=== PATIENT | female | born 1995 | race Caucasian/White ===

== ENCOUNTER 2018-09-26 14:04 | Emergency (ER) | payer BC ==
[2018-09-26 14:21] VITALS: BP 126/69
--- NOTE | 2018-09-26 15:38 | RAD ---
INDICATION: Pain and swelling overlying the lateral malleolus after a rolling injury the previous night COMPARISON: None. TECHNIQUE: 3 views of the right ankle were obtained. FINDINGS: There is a very mild degree of soft tissue swelling overlying the fibular malleolus. The bones are normal alignment. Joint spaces appear maintained. No fracture is seen. IMPRESSION: MILD SOFT TISSUE SWELLING OVERLYING THE FIBULAR MALLEOLUS WITHOUT UNDERLYING RADIOGRAPHICALLY VISIBLE FRACTURE OR DISLOCATION. If the patient's symptoms persist, follow-up imaging is recommended.
[2018-09-26] MEDS ORDERED: Acetaminophen TAB* 325 MG PO ONE (15:52)
--- NOTE | 2018-09-26 15:57 | ED ---
Lower Extremity - HPI Summary HPI Summary: pt presents for evaluation of her right ankle pain. she was walking last night and tripped and hurt her right ankle. she states she can walk on it but it still hurts a little. she took aleve this morning. 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 she denies any other injuries. - History of Current Complaint Chief Complaint: UCTrauma Stated Complaint: RT ANKLE INJ Hx Obtained From: Patient Hx Last Menstrual Period: 09/01/18 Mechanism Of Injury: Twisted Onset of Pain: Immediate Onset/Duration: Days Severity Initially: Mild Severity Currently: None Pain Intensity: 7 Location: Other - right ankle Associated Signs And Symptoms: Positive: Swelling. Negative: Redness, Bruising , Weakness, Dizziness, Syncope, Abdominal Pain, Knee Pain Aggravating Factor(s): Standing, Ambulation Alleviating Factor(s): Rest - Allergies/Home Medications Allergies/Adverse Reactions: Allergies Allergy/AdvReac Type Severity Reaction Status Date / Time No Known Allergies Allergy Verified 09/26/18 14:21 Home Medications: Home Medications NK [No Home Medications Reported] 09/26/18 [History Confirmed 09/26/18] PMH/Surg Hx/FS Hx/Imm Hx Previously Healthy: Yes Endocrine/Hematology History: Denies: Hx Anticoagulant Therapy Cardiovascular History: Denies: Hx Aneurysm Infectious Disease History: No Infectious Disease History: Denies: Traveled Outside the [place] in Last 30 Days - Social History Alcohol Use: Weekly Substance Use Type: Reports: None Smoking Status (MU): Never Smoked Tobacco Review of Systems Constitutional: Negative Eyes: Negative ENT: Negative Cardiovascular: Negative Respiratory: Negative Gastrointestinal: Negative Genitourinary: Negative Positive: Edema, Other - pain Skin: Negative Neurological: Negative Psychological: Normal All Other Systems Reviewed And Are Negative: No Physical Exam Triage Information Reviewed: Yes Vital Signs On Initial Exam: Initial Vitals Temp Pulse Resp BP Pulse Ox 97.8 F 83 19 126/69 97 09/26/18 14:15 09/26/18 14:15 09/26/18 14:15 09/26/18 14:15 09/26/18 14:15 Vital Signs Reviewed: Yes Appearance: Positive: Well-Appearing, No Pain Distress, Well-Nourished Skin: Positive: Warm, Dry Head/Face: Positive: Normal Head/Face Inspection Eyes: Positive: Normal, EOMI, NIKKI ENT: Positive: Normal ENT inspection, Hearing grossly normal, Pharynx normal Neck: Positive: Supple, Nontender Respiratory/Lung Sounds: Positive: Clear to Auscultation, Breath Sounds Present Cardiovascular: Positive: Normal, RRR Abdomen Description: Positive: Nontender, Soft Bowel Sounds: Positive: Present Musculoskeletal: Positive: Edema Right - lateral malleolus, Other - full rom right ankle Neurological: Positive: Normal, Sensory/Motor Intact, Alert, Oriented to Person Place, Time, CN Intact II-III Psychiatric: Positive: Normal AVPU Assessment: Alert Diagnostics - Vital Signs Vital Signs Temp Pulse Resp BP Pulse Ox 09/26/18 14:15 97.8 F 83 19 126/69 97 - Laboratory Lab Statement: Any lab studies that have been ordered have been reviewed, and results considered in the medical decision making process. Lower Extremity Course/Dx - Course Course Of Treatment: xray right ankle shows no frx. reading by radiologist. pt clinically is stable. pt given crutches, tylenol and her right ankle was wrapped with an enio bandage. pt instructed to avoid simi classes x 1 week. pt also instructed to take tylenol and motrin for pain. pt should f/u with pcp in 1 week. - Diagnoses Provider Diagnoses: Ankle sprain Discharge - Sign-Out/Discharge Documenting (check all that apply): Patient Departure All imaging exams completed and their final reports reviewed: Yes - Discharge Plan Condition: Stable Disposition: HOME Patient Education Materials: Ankle Sprain (DC) Referrals: No Primary Care Phys,[facility] [Primary Care Provider] - [facility] [Provider Group] Additional Instructions: take tylenol and motrin for pain and discomfort. use the crutches to assist with ambulation. weight bearing as tolerated. no simi classes x 1 week. you should follow up with your primary care physician in 1 week. if pain persists, return in 1 week for repeat xray. on very rare occasion you may have a hair line fracture that we are unable to visualize on the initial xray. - Billing Disposition and Condition Condition: STABLE Disposition: Home
== END 2018-09-26 16:18 | disposition home or self-care (01) ==
LOC: UCCORT 14:04
DX: S93.401A Sprain of unspecified ligament of right ankle, initial encounter (principal); W18.40XA Slipping, tripping and stumbling without falling, unspecified, initial encounter; Y92.9 Unspecified place or not applicable
CPT/HCPCS: 99202; A9270-GY; G0463